=== PATIENT | male | born 1935 | race Caucasian/White ===

== ENCOUNTER 2020-08-18 11:34 | Emergency (ER) | payer OTHER, MEDICAID ==
[~2020-08-18] VITALS: Ht 154.9 cm; Wt 49.9 kg
[2020-08-18 11:40] VITALS: BP_SYST 115
[2020-08-18] MEDS ORDERED: POTA8TAB4 PO (11:41)
[2020-08-18] MEDS ORDERED: FINA5TAB3 PO (11:41)
[2020-08-18] MEDS ORDERED: NOR10 PO (11:41)
[2020-08-18] MEDS ORDERED: HYDR25TA4 PO (11:41)
[2020-08-18] MEDS ORDERED: PANT40TA45 PO (11:41)
[2020-08-18] MEDS ORDERED: LIP40 PO (11:41)
[2020-08-18] MEDS ORDERED: MEMA10TA PO (11:41)
[2020-08-18] MEDS ORDERED: LEVE750T66 PO (11:41)
[2020-08-18] MEDS ORDERED: ALFU10TA10 PO (11:41)
[2020-08-18] MEDS ORDERED: DIPH-TET-PERTUS Vaccine 0.5 ML VIAL (ADACEL) I.M. ONE (12:00)
[2020-08-18 14:00] VITALS: BP_SYST 114
== END 2020-08-18 14:00 | disposition home or self-care (01) ==
LOC: SED 11:34
DX: S01.81XA Laceration without foreign body of other part of head, initial encounter (principal); Z79.899 Other long term (current) drug therapy; W18.39XA Other fall on same level, initial encounter; Y93.89 Activity, other specified; Y92.89 Other specified places as the place of occurrence of the external cause; Y99.8 Other external cause status
CPT/HCPCS: 70450-TC; 90715; 99283; 99284